=== PATIENT | male | born 1960 | race Two or more races ===

== ENCOUNTER 2019-08-08 12:14 | Emergency (ER) | payer SELFPAY ==
[~2019-08-08] VITALS: Ht 167.6 cm; Wt 70.3 kg
[2019-08-08 14:23] LABS: Basophils # (auto) 0 uL; Basophils % (auto) 0.6 % (0.0-2.0); Eosinophils # (auto) 0.2 uL; Eosinophils % (auto) 2.5 % (0.0-7.0); Hematocrit 47.2 % (41.0-53.0); Hemoglobin 15.9 g/dL (13.5-17.5); Lymphocytes # (auto) 2.6 uL; Lymphocytes % (auto) 38.4 % (10.0-50.0); Mean Corpuscular Hemoglobin 29.8 pg (28.0-32.0); Mean Corpuscular Hgb Conc. 33.7 g/dL (32.0-36.0); Mean Corpuscular Volume 88.4 fL (80.0-100.0); Monocytes # (auto) 0.6 uL; Monocytes % (auto) 8.2 % (0.0-12.0); Neutrophils # (auto) 3.4 uL; Neutrophils % (auto) 50.3 % (37.0-80.0); Nucleated Red Blood Cells % 0.1 %; Platelet Count (auto) 206 10^3/uL (140-450); Red Blood Cells 5.35 10^6/uL (4.5-5.90); Red Cell Distribution Width 13.5 % (11.8-14.3); White Blood Cell 6.8 10^3/uL (4.4-10.8)
[2019-08-08 14:45] LABS: Albumin 3.7 g/dL (3.4-5.0); Anion Gap 8 (5-15); Blood Urea Nitrogen 21 mg/dL (7-18); Calcium 8.6 mg/dL (8.5-10.1); Carbon Dioxide 28 mmol/L (21-32); Chloride 100 mmol/L (98-107); Glucose 250 mg/dL (74-106); Potassium 4.6 mmol/L (3.5-5.1); Sodium 136 mmol/L (136-145)
[2019-08-08 14:47] LABS: BUN/Creatinine Ratio 19.6; GFR African American 91 mL/min; GFR Non-African American 75 mL/min
[2019-08-08 14:51] LABS: Alanine Aminotransferase 23 U/L (16-61); Alkaline Phosphatase 74 U/L (45-117); Aspartate Aminotransferase 28 U/L (15-37); Bilirubin, Total 0.8 mg/dL (0.2-1.0); Total Protein 8.4 g/dL (6.4-8.2)
[2019-08-08 14:55] LABS: INR 1.03 (0.9-1.15); Partial Thromboplastin Time 23.9 sec (23.64-32.05)
[2019-08-08 17:16] VITALS: BP 138/85
== END 2019-08-08 17:23 | disposition home or self-care (01) ==
LOC: ER 12:22
DX: G45.9 Transient cerebral ischemic attack, unspecified (principal)
CPT/HCPCS: 36415; 70450; 80053; 83880; 84484; 85025; 85610; 85730; 93005